=== PATIENT | female | born 1965 | race Caucasian/White ===

== ENCOUNTER 2021-10-03 06:39 | Day surgery (SDC) | payer MEDICAID ==
[2021-09-26 16:09] LABS: BASOPHILS # (AUTO) 0.1 X10'3 (0-0.2); BASOPHILS % (AUTO) 0.6 % (0-1); EOSINOPHILS # (AUTO) 0.2 X10'3 (0-0.9); EOSINOPHILS % (AUTO) 2.1 % (0-6); LYMPHOCYTES # (AUTO) 3.5 X10'3 (1.1-4.8); LYMPHOCYTES % (AUTO) 32.8 % (21-51); MEAN CORPUSCULAR HEMOGLOBIN 31.2 PG (27.0-31.0); MEAN CORPUSCULAR HGB CONC 34.3 g/dL (33.0-36.5); MEAN PLATELET VOLUME 10.1 FL (7.4-10.4); MONOCYTES # (AUTO) 1.1 X10'3 (0-0.9); MONOCYTES % (AUTO) 10.7 % (2-12); NEUTROPHILS # (AUTO) 5.7 X10'3 (1.8-7.7); NEUTROPHILS % (AUTO) 53.8 % (42-75); PRE OP HEMATOCRIT 45.5 % (35.0-45.0); PRE OP HEMOGLOBIN 15.6 g/dL (12.0-16.0); PRE OP PLATELET COUNT 270 X10'3 (140-440); RED CELL DISTRIBUTION WIDTH 13.4 % (11.5-14.5)
[2021-09-26 16:15] LABS: ALBUMIN 3.7 G/DL (3.4-5.0); ALKALINE PHOSPHATASE 125 IU/L (46-116); BLOOD UREA NITROGEN 9 MG/DL (7-18); BUN/CREATININE RATIO 11.8 (6.6-38.0); CALCIUM 9.2 MG/DL (8.5-10.1); CHLORIDE 102 MMOL/L (99-107); CREATININE 0.76 MG/DL (0.40-0.90); PRE OP ANION GAP 12 (8-16); PRE OP AST 44 U/L (10-37); PRE OP BILIRUB, TOTAL 0.4 MG/DL (0.0-1.0); PRE OP GLUCOSE 140 MG/DL (70-104); PRE OP POTASSIUM 3.8 MMOL/L (3.4-5.1); PRE OP SODIUM 141 MMOL/L (135-145); TOTAL CARBON DIOXIDE 27.3 MMOL/L (24-32); TOTAL PROTEIN 7.4 G/DL (6.4-8.2); eGFR 78 ML/MIN
[2021-09-26 16:18] LABS: PRE OP ALT 89 U/L (30-65)
[~2021-10-03] VITALS: Ht 167.6 cm; Wt 112.2 kg
[~2021-10-03 06:39] MED LIST: CETI10TA14 PO; CHLO25TA10 PO; LOSA25TA41 PO; MONT-40 PO; OMEP20CA16 PO; albuterol 2.5 MG/3 ML nebule NEB ONE; ceFAZolin inj. 2,000 MG in dextrose 5%-water 100 ML IV ONE; famotidine 20mg tablet PO ONE; ringers solution, lacted 1,000 ML IV SCH
[2021-10-03 06:45] VITALS: BP 133/68
--- NOTE | 2021-10-03 06:45 | NUR ---
pt received to the pas unit, breathing heavy, stating shes going to pass out if she didnt sit down jorden. pt immediately place in room 246. Her breathing calmed down after she was able to sit down for a few minutes. ivs started bilateral hands. Pt stated that she was dying for a cigarette. pt educationed on smoking sessation and improved healing if she obstained from smoking. patient also educated on IS spirometry use.
[2021-10-03] MEDS ORDERED: LIDOcaine 0.5% (5mg/ml) 50ml vial ONE (07:24)
--- NOTE | 2021-10-03 07:35 | NUR ---
respiratory paged for breathing treatment, pt is a smoker with a hoarse couch nad dyspnea Addendum: 10/03/21 at 0736 by Marietta Lagunas RN hoarse cough
[2021-10-03] MEDS ORDERED: BUPIVAcaine/PF 2.5 mg/ml (0.25%) 30ml vial ONE (08:37)
[2021-10-03] MEDS ORDERED: ondansetron/PF 4mg/2ml inj IV PRN (08:45)
[2021-10-03] MEDS ORDERED: ringers solution, lacted 1,000 ML IV SCH (08:45)
[2021-10-03] MEDS ORDERED: morphine 2 MG/ML inj. syringe IV PRN (08:45)
[2021-10-03] MEDS ORDERED: meperidine/PF 25mg/ml syringe IV PRN ×3 (08:45)
[2021-10-03] MEDS ORDERED: proCHLORperazine 10 MG/2 ml inj IV PRN (08:45)
[2021-10-03] MEDS ORDERED: morphine 4 MG/ML inj SYRINge IV PRN (08:45)
[2021-10-03] MEDS ORDERED: midazolam 1 mg/ML 2ml injection ONE ×2 (08:48)
[2021-10-03] MEDS ORDERED: fentaNYL/PF 50MCG/1 ML 2ML syringe ONE (08:59)
[2021-10-03] MEDS ORDERED: propofol inj 20 ML IV ONE (09:15)
[2021-10-03 09:26] VITALS: BP 86/56
--- NOTE | 2021-10-03 09:26 | NUR ---
Received from OR via [facility], accompanied by Anesthesiologist DR HERNANDEZ and report given by Anesthesiolgist. PT PRESENT WITH 20G RIGHT WRIST. LEFT HAND/WRIST DRESSIN/E;BPW CDI, VSS. Addendum: 10/03/21 at 0936 by Negrita Huynh RN, RN Amended: Links added.
[2021-10-03 09:40] VITALS: BP 108/69
[2021-10-03 09:50] VITALS: BP 118/75
[2021-10-03 10:00] VITALS: BP 110/79
[2021-10-03 10:06] VITALS: BP 110/79
--- NOTE | 2021-10-03 10:06 | NUR ---
PT HAS NET ALL DC CRITERIA, IV DC'S WITH CANULA INTACT. DC INSTRUCTIONS REVIEWED WITH PT, PT VERBLAIZED UNDERSTANDING WITH NO FURTHER QUESTIONS AT THIS TIME. Addendum: 10/03/21 at 1014 by Negrita Huynh RN, RN Amended: Links added.
== END 2021-10-03 10:06 | disposition home or self-care (01) ==
LOC: PAS 06:39
PROVIDERS: ATTEND Orthopaedic Surgery Hand Surgery
DX: G56.02 Carpal tunnel syndrome, left upper limb (principal); G56.22 Lesion of ulnar nerve, left upper limb; F17.210 Nicotine dependence, cigarettes, uncomplicated; G47.30 Sleep apnea, unspecified; K21.9 Gastro-esophageal reflux disease without esophagitis; I10 Essential (primary) hypertension; M19.90 Unspecified osteoarthritis, unspecified site; E66.9 Obesity, unspecified; Z68.36 Body mass index [BMI] 36.0-36.9, adult; Z79.899 Other long term (current) drug therapy; Z88.5 Allergy status to narcotic agent; Z72.89 Other problems related to lifestyle; Z98.890 Other specified postprocedural states
CPT/HCPCS: 29848; 36415; 64718; 71046; 80053; 82948; 85025; 93005; J0690; J2250; J2704; J3010; J3490; J7030; J7060; J7120; Z7506; Z7512; A4215; A6449; A7000

== ENCOUNTER 2024-04-03 10:31 | Outpatient (CLI) | payer MEDICARE, MEDICAID ==
[~2024-04-03 10:31] MED LIST changes: -albuterol 2.5 MG/3 ML nebule NEB ONE; -ceFAZolin inj. 2,000 MG in dextrose 5%-water 100 ML IV ONE; -famotidine 20mg tablet PO ONE; -ringers solution, lacted 1,000 ML IV SCH
== END 2024-04-03 23:59 | disposition home or self-care (01) ==
LOC: RAD 10:31
PROVIDERS: ATTEND Physician Assistant
DX: M19.011 Primary osteoarthritis, right shoulder (principal); M25.511 Pain in right shoulder
CPT/HCPCS: 73030